=== PATIENT | male | born 1975 | race Caucasian/White ===

== ENCOUNTER 2022-03-25 10:23 | Emergency (ER) | payer BC ==
[2022-03-25] MEDS ORDERED: Ondansetron 4 MG Tab.DIS PO ONE (10:24)
[2022-03-25] MEDS ORDERED: Sodium Chloride 0.9% 10 ML Syringe FLUSH PRN (10:35)
[2022-03-25] MEDS ORDERED: Ondansetron 4 MG/2 ML SDV IVPUSH ONE (10:36)
[2022-03-25] MEDS ORDERED: Sodium Chloride 0.9% 1,000 ML IV ONE (10:36)
[2022-03-25 11:59] LABS: ANION GAP 16.3 mEq/L (7-13)
[2022-03-25] MEDS ORDERED: Iopamidol 612 MG/ML 100 ML Bottle IVPUSH ONE (12:19)
[2022-03-25] MEDS ORDERED: Ondansetron 4 MG Tab.DIS ONE (13:32)
== END 2022-03-25 13:41 | disposition home or self-care (01) ==
LOC: DL.ED 10:23
DX: K29.00 Acute gastritis without bleeding (principal); E86.0 Dehydration; Z20.822 Contact with and (suspected) exposure to COVID-19
CPT/HCPCS: 36415; 74177; 80053; 83605; 83690; 83735; 84484; 85025; 85379; 86140; 87635; 93005; 96361; 96374; 99284; A9270; J2405; J3490; J7030; Q9967; U0002